=== PATIENT | male | born 1985 | race Caucasian/White ===

== ENCOUNTER 2022-01-04 08:36 | Emergency (ER) | payer OTHER ==
[2022-01-04] MEDS ORDERED: Sodium Chloride 0.9% 10 ML Syringe FLUSH PRN (09:30)
[2022-01-04 09:58] VITALS: BP 108/67; PULSE 102
[2022-01-04] MEDS: Sodium Chloride 0.9% 1,000 ML IV ONE (10:04)
[2022-01-04] MEDS: ceFAZolin 2 GM in Sodium Chloride 0.9% 100 ML IV ONE (10:13)
[2022-01-04 10:14] LABS: ESTIMATED GFR 38 mL/min (>60)
[2022-01-04] MEDS: fentaNYL 100 MCG/2 ML SDV IVPUSH PRN (10:34)
[2022-01-04] MEDS: Lidocaine 2% 100 MG/5 ML Syringe IVPUSH ONE (10:35)
[2022-01-04] MEDS: Nicotine 21 MG/24 Hr Patch TRDERM ONE (10:57)
[2022-01-04] MEDS: Lidocaine 1% 30 ML SDV INJECT ONE (11:15)
[2022-01-04] MEDS: ceFAZolin 1 GM Vial ONE (11:18)
[2022-01-04] MEDS: fentaNYL 100 MCG/2 ML SDV ONE (11:18)
[2022-01-04] MEDS: Nicotine 21 MG/24 Hr Patch ONE (11:18)
== END 2022-01-04 11:03 ==
LOC: LB.ED 08:36
DX: A41.9 Sepsis, unspecified organism (principal); R65.20 Severe sepsis without septic shock; S02.2XXA Fracture of nasal bones, initial encounter for closed fracture; S02.40EB Zygomatic fracture, right side, initial encounter for open fracture; S42.492A Other displaced fracture of lower end of left humerus, initial encounter for closed fracture; N17.9 Acute kidney failure, unspecified; V49.9XXA Car occupant (driver) (passenger) injured in unspecified traffic accident, initial encounter; Y92.410 Unspecified street and highway as the place of occurrence of the external cause
CPT/HCPCS: 36415; 70450; 70486; 71045; 71250; 72125; 72170; 74176; 80048; 80307; 82947; 83605; 85025; 96365; 96375; 99285-25; A9270-GY; J0690; J3010; J3490; J7030